=== PATIENT | female | born 1985 | race Caucasian/White ===

== ENCOUNTER → 2017-03-07 11:53 | Outpatient (CLI) | payer MEDICAID | END | disposition home or self-care (01) | LOC: D.LAB 11:53 | DX: M54.5 Low back pain (principal) ==

== ENCOUNTER → 2017-03-15 08:41 | Outpatient (CLI) | payer MEDICAID | END | disposition home or self-care (01) | LOC: D.MRI 03-14 11:30 | DX: M54.16 Radiculopathy, lumbar region (principal) ==

== ENCOUNTER → 2017-07-04 09:50 | Outpatient (CLI) | payer MEDICAID | END | disposition home or self-care (01) | LOC: D.US 09:50 | DX: R11.0 Nausea (principal); R10.9 Unspecified abdominal pain ==

== ENCOUNTER 2017-07-04 17:14 | Emergency (ER) | payer MEDICAID | END 2017-07-04 20:27 | disposition home or self-care (01) | LOC: D.ER 17:14 | DX: J20.9 Acute bronchitis, unspecified (principal); R07.89 Other chest pain ==

== ENCOUNTER 2017-09-05 20:04 | Emergency (ER) | payer MEDICAID ==
[2017-09-05 21:32] LABS: BASOPHILS 0 % (0-2); EOSINOPHILS 0 % (0-7); HEMATOCRIT 30.9 % (36.0-48.0); HEMOGLOBIN 8.8 g/dL (12-16); IMMATURE GRANULOCYTES 0.6 % (0-5); LYMPHOCYTES 4.2 % (15-50); MCH 18.8 pg (26.0-34.0); MCHC 28.5 g/dL (31.0-37.0); MCV 66.2 fL (80.0-100.0); MEAN PLATELET VOLUME 9.9 fL (7.4-10.4); MONOCYTES 0.6 % (2-11); NEUTROPHILS 94.6 % (40-80); PLATELET COUNT 324 10x3/uL (130-400); RBC 4.67 10x6/uL (4.00-5.40); RDW 18.1 % (11.5-14.5); WBC 8.9 10x3/uL (4.8-10.8)
[2017-09-05 21:43] LABS: APTT 26.5 SECONDS (22.8-39.4); INR 1.07 (0.85-1.17); PROTIME 13.5 SECONDS (11.6-15.0)
[2017-09-05 21:49] LABS: ALBUMIN 3.7 g/dL (3.4-5.0); ANION GAP 15.8 mmol/L (8-16); BILIRUBIN - TOTAL 0.36 mg/dL (0.2-1.3); CALCIUM 8.8 mg/dL (8.5-10.1); CARBON DIOXIDE 24.3 mmol/L (21.0-32.0); POTASSIUM - SERUM 4.1 mmol/L (3.5-5.1); PROTEIN - SERUM 7.5 g/dL (6.4-8.2)
[2017-09-05 21:50] LABS: HCG SERUM NEGATIVE (NEGATIVE)
== END 2017-09-06 01:50 | disposition home or self-care (01) ==
LOC: D.ER 20:04
PROVIDERS: Family Medicine
DX: N93.8 Other specified abnormal uterine and vaginal bleeding (principal); D64.9 Anemia, unspecified

== ENCOUNTER 2017-11-21 05:10 | Day surgery (SDC) | payer MEDICAID ==
[2017-11-20 11:16] LABS: BASOPHILS 0.2 % (0-2); EOSINOPHILS 0.8 % (0-7); LYMPHOCYTES 18.2 % (15-50); MCH 22.9 pg (26.0-34.0); MCHC 30.6 g/dL (31.0-37.0); MCV 74.8 fL (80.0-100.0); MEAN PLATELET VOLUME 10.7 fL (7.4-10.4); NEUTROPHILS 75.8 % (40-80); RBC 4.81 10x6/uL (4.00-5.40); RDW 22.8 % (11.5-14.5); WBC 4.8 10x3/uL (4.8-10.8)
[2017-11-20 11:17] LABS: PLATELET COUNT 230 10x3/uL (130-400)
[2017-11-20 11:30] LABS: CALC OSMOLALITY 280 mosm/kg (275-300); CALCIUM 9.4 mg/dL (8.5-10.1); CARBON DIOXIDE 27.2 mmol/L (21.0-32.0); CHLORIDE - SERUM 105 mmol/L (98-107); CREATININE - SERUM 0.7 mg/dL (0.6-1.3); POTASSIUM - SERUM 4.3 mmol/L (3.5-5.1); SODIUM 141 mmol/L (136-145); UREA NITROGEN 13 mg/dL (7-18); eGFR NON AFRICAN AMERICAN > 90 mL/min (90-120)
[2017-11-20 11:42] LABS: GLUCOSE 97 mg/dL (74-106)
[~2017-11-21] VITALS: Ht 165.1 cm; Wt 118.8 kg
--- NOTE | ~2017-11-21 | OP ---
PATIENT NAME: ADRIEN RANGEL MEDICAL RECORD: [id number] :83 LOCATION:D.[facility] ADMISSION DATE: SURGEON: FABIO DOWELL MD DATE OF OPERATION: 11/21/2017 PREOPERATIVE DIAGNOSIS: Menorrhagia, symptomatic fibroid uterus. POSTOPERATIVE DIAGNOSIS: Menorrhagia, symptomatic fibroid uterus. PROCEDURE PERFORMED: 1. Diagnostic laparoscopy. 2. Laparoscopic subtotal hysterectomy. 3. Exploratory laparotomy with removal of uterus. SURGEON: Fabio Dowell MD TEST RACK OPERATOR: Sameer Cedeño. ANESTHESIOLOGIST: Sushil Jimenez MD ANESTHESIA: General. FINDINGS: Uterus is enlarged with multiple fibroids. Tubes and ovaries are unremarkable. What was visualized of the abdominal anatomy was unremarkable. SPECIMEN REMOVED: Uterus without cervix and with both tubes. SPECIMENS DISPOSITION: Pathology. ESTIMATED BLOOD LOSS: Less than or equal to 100 cc. FLUIDS: 1500 cc lactated Ringer's. URINE OUTPUT: 250 cc of clear urine. COMPLICATIONS: None. DRAIN: Melo to gravity discontinued at women's services. INDICATIONS: The patient is a 32-year-old female with menorrhagia. During workup, the patient was found to have fibroid uterus. The patient has failed conservative therapy and wishes definitive treatment. Risks, benefits, and limitations of subtotal hysterectomy discussed with the patient. DESCRIPTION OF PROCEDURE: After informed consent was assured, the patient was taken to the operating room, anesthetic was obtained without difficulty. The patient was now prepped and draped in the usual sterile fashion. An incision was made at the umbilicus to accommodate a 5-mm trocar, which was inserted without difficulty. With pneumoperitoneum developed, the patient in Trendelenburg position and accessory ports were placed in the right and left lower quadrant. Both ports were 5-mm ports. The bowel was manipulated free of the pelvis. The right tube elevated and using a coagulation cutter, the tube is from its attachments to the adnexa. The dissection was carried out underneath the tube across the uteroovarian and round ligaments. The anterior leaf of the broad ligament was opened and the bladder flap developed to the OPERATIVE REPORT [id number] ADRIEN RANGEL midline. The posterior leaf was opened and the vessels of the right side were skeletonized, compressed, and coagulated. Attention was now directed to the left side. The left tube was now elevated from the right and using a coagulation cutter, the tube was removed from its attachments to the adnexa. This dissection was carried down over the uteroovarian ligament and round ligaments. The broad ligament was opened and dissection was carried to the midline anteriorly. The posterior leaf was further dissected. The vessels of the left side skeletonized and compressed and now coagulated. The vessel of the left is and using an ELVIS Harmonic scalpel, the attachment of the uterus to the cervix is now dissected. This starts on the left and concludes on the right. Once the uterus was removed, it is grasped with a laparoscopic grasper and attention was directed back to the surface of the abdomen. A minilaparotomy was now performed and dissection carried down to the underlying layer of the fascia, which was opened and opening extended laterally. The uterus was now brought to the incision and morcellated. Once the uterus has been removed, the fascia was closed with PDS and pneumoperitoneum reestablished. Survey of the operative field reveals adequate hemostasis. The pelvis was now irrigated and all irrigant removed. The accessory trocars were removed under direct visualization and the primary trocar removed after release of the pneumoperitoneum. All sites were closed with subcuticular stitch and sterile dressing applied. Sponge, lap, and needle counts were correct times 2 and the patient went to the recovery area in stable condition. TRANSINT:[id number] Voice Confirmation ID: [id number] DOCUMENT ID: [id number] FABIO DOWELL MD at 1218 CC: [id number] DICTATION DATE: 11/21/17 0947 INTELLECTUAL PROPERTY COUNSEL: 11/21/17 1055 [facility] 11/21/17 [address] [place] [address]
[~2017-11-21 05:10] MED LIST: PROBIOTIC BLEN1 EACH PO
[2017-11-21 06:28] VITALS: BP 123/57; Ht 165.1 cm; Wt 118.8 kg
[2017-11-21 10:40] VITALS: BP 143/67
[2017-11-21 19:21] VITALS: BP 132/66
[2017-11-21] MEDS ORDERED: NEURONTIN 300300 MG PO (22:08)
[2017-11-21] MEDS ORDERED: MOBIC7.5 MG PO (22:08)
[2017-11-21] MEDS ORDERED: OXYCONTIN10 MG PO (22:10)
[2017-11-22 06:44] LABS: HCG URINE NEGATIVE (NEGATIVE)
== END 2017-11-21 22:19 | disposition home or self-care (01) ==
LOC: D.OPS 05:10 → D.PAN 07:30 → D.OPS 09:00 → D.LD 10:20 → D.OPS 22:19
PROVIDERS: Obstetrics & Gynecology
DX: N80.0 Endometriosis of uterus (principal); D25.9 Leiomyoma of uterus, unspecified; Z01.812 Encounter for preprocedural laboratory examination

== ENCOUNTER 2017-12-11 10:29 | Emergency (ER) | payer MEDICAID ==
[~2017-12-11 10:29] MED LIST changes: +MOBIC7.5 MG PO; +NEURONTIN 300300 MG PO; +OXYCONTIN10 MG PO
[2017-12-11 10:32] VITALS: Ht 165.1 cm
[2017-12-11 11:07] LABS: BASOPHILS 0.2 % (0-2); EOSINOPHILS 2.5 % (0-7); HEMATOCRIT 35.9 % (36.0-48.0); HEMOGLOBIN 11.3 g/dL (12-16); IMMATURE GRANULOCYTES 0.2 % (0-5); LYMPHOCYTES 18.1 % (15-50); MCH 23.8 pg (26.0-34.0); MCHC 31.5 g/dL (31.0-37.0); MCV 75.6 fL (80.0-100.0); MEAN PLATELET VOLUME 10.3 fL (7.4-10.4); MONOCYTES 3.6 % (2-11); NEUTROPHILS 75.4 % (40-80); PLATELET COUNT 247 10x3/uL (130-400); RBC 4.75 10x6/uL (4.00-5.40); RDW 18.7 % (11.5-14.5); WBC 5.5 10x3/uL (4.8-10.8)
[2017-12-11 11:28] LABS: ALBUMIN 3.6 g/dL (3.4-5.0); ALKALINE PHOSPHATASE 73 U/L (46-116); ALT (SGPT) 10 U/L (10-68); BILIRUBIN - TOTAL 0.26 mg/dL (0.2-1.3); CALC OSMOLALITY 281 mosm/kg (275-300); CALCIUM 9.3 mg/dL (8.5-10.1); CARBON DIOXIDE 27.1 mmol/L (21.0-32.0); CHLORIDE - SERUM 105 mmol/L (98-107); CREATININE - SERUM 0.6 mg/dL (0.6-1.3); GLUCOSE 97 mg/dL (74-106); POTASSIUM - SERUM 4.2 mmol/L (3.5-5.1); SODIUM 141 mmol/L (136-145); UREA NITROGEN 16 mg/dL (7-18); eGFR NON AFRICAN AMERICAN > 90 mL/min (90-120)
[2017-12-11 12:40] LABS: APPEARANCE HAZY (CLEAR); BILIRUBIN NEGATIVE (NEGATIVE); COLOR YELLOW (YELLOW); GLUCOSE NEGATIVE (NEGATIVE); KETONE NEGATIVE (NEGATIVE); NITRITE NEGATIVE (NEGATIVE); PROTEIN NEGATIVE (NEGATIVE); UROBILINOGEN NORMAL (NORMAL)
[2017-12-11 12:44] LABS: BACTERIA MANY /hpf (NONE SEEN); MUCUS <1+ /lpf (NONE SEEN); RED CELLS - URINE RARE /hpf (0-5)
[2017-12-11 12:56] LABS: INR 1.02 (0.85-1.17)
[2017-12-11 13:01] LABS: APTT 24.9 SECONDS (22.8-39.4)
[2017-12-11 14:35] VITALS: BP 122/079
== END 2017-12-11 14:36 | disposition home or self-care (01) ==
LOC: D.ER 10:29
PROVIDERS: Family Medicine
DX: L76.32 Postprocedural hematoma of skin and subcutaneous tissue following other procedure (principal); N76.0 Acute vaginitis; B96.89 Other specified bacterial agents as the cause of diseases classified elsewhere; N39.0 Urinary tract infection, site not specified

== ENCOUNTER 2018-05-30 16:05 | Emergency (ER) | payer MEDICAID ==
[~2018-05-30] VITALS: Ht 165.1 cm; Wt 109.1 kg
[2018-05-30 16:11] VITALS: Ht 165.1 cm; Wt 109.1 kg
[2018-05-30] MEDS ORDERED: ZOLOFT50 MG PO (16:13)
[2018-05-30] MEDS ORDERED: ADIPEX-P37.5 M1 PO (16:13)
[2018-05-30] MEDS ORDERED: ULTRAM50 MG PO (17:15)
[2018-05-30 18:30] VITALS: BP 158/111
== END 2018-05-30 19:04 | disposition home or self-care (01) ==
LOC: D.ER 16:05
DX: S62.306A Unspecified fracture of fifth metacarpal bone, right hand, initial encounter for closed fracture (principal); X58.XXXA Exposure to other specified factors, initial encounter; Y93.89 Activity, other specified; Y92.89 Other specified places as the place of occurrence of the external cause; S60.221A Contusion of right hand, initial encounter

== ENCOUNTER 2018-12-09 09:13 | Day surgery (SDC) | payer MEDICAID ==
--- NOTE | 2018-11-14 17:04 | HP ---
PATIENT: ADRIEN RANGEL MEDICAL RECORD: [id number] ACCOUNT: [id number] LOCATION:[facility] : 84 ADMISSION DATE: 12/09/18 PCP: STAS QURESHI DO HISTORY AND PHYSICAL EXAMINATION HISTORY OF PRESENT ILLNESS: Adrien is 33 years old. She has had problems with nasal obstruction refractory to medical management, history of a nasal fracture as well. She is being admitted for septoplasty and bilateral turbinate reduction. PAST MEDICAL HISTORY: Includes reflux, sleep apnea. PAST SURGICAL HISTORY: Includes hysterectomy, times 3, and closed reduction nasal fracture in 2000. CURRENT MEDICATIONS: Wellbutrin. ALLERGIES: PREDNISONE, SULFA. PHYSICAL EXAMINATION: GENERAL: She is healthy-appearing, developmentally normal. FACE: Normal, symmetric, no lesions. EYES: Sclerae and conjunctivae are normal. EARS: Canals and TMs normal. NOSE: Septal deviation with thick anterior septum and large turbinates. ORAL CAVITY AND OROPHARYNX: Small tonsils, normal palate. NECK: No masses, no adenopathy. CHEST: Clear. CARDIOVASCULAR: Regular rate and rhythm, no murmur. EXTREMITIES: Normal. IMPRESSION: Nasal obstruction refractory to medical management and difficulty with CPAP because of that. PLAN: Septoplasty, bilateral inferior turbinate reduction. TRANSINT:[id number] Voice Confirmation ID: [id number] DOCUMENT ID: [id number] JE SOUZA MD at 1704 CC: [id number] DICTATION DATE: 11/13/18 1335 SENIOR MARKETING ENGINEER: 11/13/18 [id number] [place] [address]
[~2018-12-09] VITALS: Ht 165.1 cm; Wt 108.9 kg
[~2018-12-09 09:13] MED LIST changes: +ADIPEX-P37.5 M1 PO; +MERIBIN5 MG PO; +NASACORT10.8 ML NASAL; +THEREMS-M1 TAB PO; +ULTRAM50 MG PO; +ZOLOFT50 MG PO
[2018-12-09 09:49] LABS: HEMATOCRIT 40.3 % (36.0-48.0); HEMOGLOBIN 13.4 g/dL (12-16); MCHC 33.3 g/dL (31.0-37.0); MCV 84.1 fL (80.0-100.0); MEAN PLATELET VOLUME 10.4 fL (7.4-10.4); RBC 4.79 10x6/uL (4.00-5.40); RDW 13.6 % (11.5-14.5); WBC 4.6 10x3/uL (4.8-10.8)
[2018-12-09 11:12] VITALS: BP 98/58; Ht 165.1 cm; Wt 108.9 kg
--- NOTE | 2018-12-16 18:40 | HP ---
PATIENT: ADRIEN RANGEL MEDICAL RECORD: [id number] ACCOUNT: [id number] LOCATION:[facility] : 83 ADMISSION DATE: 12/09/18 PCP: STAS QURESHI DO HISTORY AND PHYSICAL EXAMINATION HISTORY OF PRESENT ILLNESS: Adrien is 33 years old. She is having problems with nasal obstruction due to old nasal injury and unable to tolerate CPAP. Because of the nasal obstruction, she is being admitted for septoplasty and bilateral inferior turbinate reduction. PAST MEDICAL HISTORY: Includes reflux. PAST SURGICAL HISTORY: Includes hysterectomy, , closed reduction nasal fracture in 2000. CURRENT MEDICATIONS: Wellbutrin. ALLERGIES: PREDNISONE AND SULFA. PHYSICAL EXAMINATION: GENERAL: She is healthy-appearing, developmentally normal. FACE: Normal and symmetric. EYES: Sclerae and conjunctivae are normal. EARS: Canals and TMs are normal. NOSE: Anterior septum was very thick with some deviation. She has large inferior turbinates bilaterally. ORAL CAVITY AND OROPHARYNX: Small tonsils, normal palate. NECK: No masses, no adenopathy. CHEST: Clear. CARDIOVASCULAR: Regular rate and rhythm, no murmur. EXTREMITIES: Normal. IMPRESSION: Nasal obstruction, septal deviation, and turbinate hypertrophy. PLAN: Septoplasty and turbinate reduction. TRANSINT:[id number] Voice Confirmation ID: [id number] DOCUMENT ID: [id number] JE SOUZA MD at 1840 CC: [id number] DICTATION DATE: 12/06/18 1057 MARKETING PROFESSIONAL: 12/06/18 1109 [facility] 12/09/18 [id number] [place] [address]
--- NOTE | 2018-12-16 18:40 | OP ---
PATIENT NAME: ADRIEN RANGEL MEDICAL RECORD: [id number] :83 LOCATION:D[facility] ADMISSION DATE: SURGEON: JE NORTH MD DATE OF OPERATION: 12/09/2018 PREOPERATIVE DIAGNOSES: Nasal obstruction, septal deviation, and turbinate hypertrophy. POSTOPERATIVE DIAGNOSES: Nasal obstruction, septal deviation, and turbinate hypertrophy. PROCEDURES: Septoplasty and bilateral inferior turbinate reduction. SURGEON: Je North MD ANESTHESIA: General orotracheal. BLOOD LOSS: 2 cc. NASAL PACKING: Gamez splints bilaterally. COMPLICATIONS: None. DISPOSITION: Recovery, stable. DESCRIPTION OF PROCEDURE: She was brought to the operating room, placed in the supine position, sedated and intubated by anesthesia. Eyes were taped. Head drape was applied and she was positioned for nasal surgery. Using headlight and nasal speculum, both sides of the nose were examined. The anterior septum, floor of the nose, and inferior turbinates were injected with a total of less than 2 cc of 1% lidocaine with 1:100,000 epinephrine and 2 Afrin pledgets were placed in each side of the nose. She was then positioned, prepped and draped in usual fashion. Afrin pledgets were removed and a right-sided Emir incision was made with a #15 blade. Ipsilateral mucoperichondrial flap was elevated. Bony cartilaginous junction was disarticulated and bony spur was isolated inferiorly. It was removed with a chisel. Scissors were used to make a cut above and below the bony septal deviation posteriorly. Relaxing incisions were made in the anterior septal cartilage. This allowed the septum to fall back to the midline. A freer was used to infracture both inferior turbinates. A Gruenwald was used to take down the inferior redundant portion of the turbinate. Suction cautery on a setting of 28 was then used to stop any bleeding and both the inferior turbinates were outfractured with a [place] elevator. The Emir incision was closed with interrupted 4-0 chromic. The nose was again examined and suctioned. Gamez splints were placed bilaterally with some mupirocin ointment and a 2-0 Prolene with a Javan needle was used to suture the splints in place through the anterior membranous septum. She was awakened, extubated, and transported to recovery in good condition. No complications. TRANSINT:[id number] Voice Confirmation ID: [id number] DOCUMENT ID: [id number] OPERATIVE REPORT [id number] ADRIEN RANGEL ERIC MD at 1840 CC: [id number] DICTATION DATE: 12/09/18 1352 INSTITUTIONAL RESEARCH DIRECTOR: 12/09/18 1447 [facility] 12/09/18 [id number] [place] [id number]
== END 2018-12-09 17:35 | disposition home or self-care (01) ==
LOC: D.OPS 09:13 → D.PAN 10:15 → D.OPS 10:15 → D.PAN 11:00 → D.OPS 11:00 → D.PAN 11:45 → D.OPS 14:00 → D.PAN 14:00 → D.OPS 17:35
PROVIDERS: Anesthesiology; ATTEND Otolaryngology
DX: J34.89 Other specified disorders of nose and nasal sinuses (principal); J34.2 Deviated nasal septum; J34.3 Hypertrophy of nasal turbinates; Z01.812 Encounter for preprocedural laboratory examination

== ENCOUNTER 2019-03-16 17:58 | Emergency (ER) | payer MEDICAID ==
[~2019-03-16] VITALS: Ht 165.1 cm; Wt 111.4 kg
[2019-03-16 17:59] VITALS: Ht 165.1 cm; Wt 111.4 kg
[2019-03-16 19:51] VITALS: BP 131/77
== END 2019-03-16 20:04 | disposition home or self-care (01) ==
LOC: D.ER 17:58
DX: S90.31XA Contusion of right foot, initial encounter (principal); X58.XXXA Exposure to other specified factors, initial encounter

== ENCOUNTER 2020-02-26 00:02 | Emergency (ER) | payer MEDICAID ==
[~2020-02-26] VITALS: Ht 165.1 cm; Wt 90.7 kg
[2020-02-26 00:09] VITALS: Ht 165.1 cm; Wt 90.7 kg
[2020-02-26] MEDS ORDERED: HYDROCODON-ACE1 EAC7 PO (00:25)
[2020-02-26] MEDS ORDERED: KEFLEX500 MG PO (00:25)
[2020-02-26 00:49] VITALS: BP 140/93
== END 2020-02-26 00:50 | disposition home or self-care (01) ==
LOC: D.ER 00:02
DX: T23.202A Burn of second degree of left hand, unspecified site, initial encounter (principal); T31.0 Burns involving less than 10% of body surface; T79.9XXA Unspecified early complication of trauma, initial encounter; X08.8XXA Exposure to other specified smoke, fire and flames, initial encounter

== ENCOUNTER 2020-03-12 08:25 | Emergency (ER) | payer MEDICAID ==
[~2020-03-12] VITALS: Ht 165.1 cm; Wt 122.7 kg
[~2020-03-12 08:25] MED LIST changes: +HYDROCODON-ACE1 EAC7 PO; +KEFLEX500 MG PO
[2020-03-12 08:43] VITALS: BP 147/105; Ht 165.1 cm; Wt 122.7 kg
[2020-03-12] MEDS ORDERED: NAPROSYN500 MG PO (09:01)
== END 2020-03-12 09:47 | disposition home or self-care (01) ==
LOC: D.ER 08:25
DX: M79.671 Pain in right foot (principal); S90.31XA Contusion of right foot, initial encounter; W01.0XXA Fall on same level from slipping, tripping and stumbling without subsequent striking against object, initial encounter